=== PATIENT | male | born 1965 | race Hispanic/Latino ===

== ENCOUNTER 2017-02-21 12:59 | Emergency (ER) | payer MEDICAID, SELFPAY ==
[2017-02-21 13:10] VITALS: BP 128/66; PULSE 74; RESP 18; O2SAT 99
--- NOTE | 2017-02-21 13:31 | ED PDOC ---
HPI: General Adult Time Seen by Provider: 02/21/17 13:26 Chief Complaint (Nursing): Abnormal Skin Integrity Chief Complaint (Provider): right underarm abscess History Per: Patient History/Exam Limitations: no limitations Additional Complaint(s): 52yo male w/ HIV comes to the ED complaining of right armpit abscess. No Hx diabetes. No Hx drug use. No fever or drainage. No weakness or numbness. Patient has had this in the past and states it was resolved with clindamycin. Past Medical History Reviewed: Historical Data, Nursing Documentation, Vital Signs Vital Signs: Last Vital Signs Temp 98.9 F 02/21/17 14:04 Pulse 74 02/21/17 13:04 Resp 18 02/21/17 13:04 BP 128/66 02/21/17 13:04 Pulse Ox 99 02/21/17 13:56 - Medical History PMH: HIV Denies: Diabetes, Chronic Kidney Disease - Surgical History Surgical History: No Surg Hx - Family History Family History: States: Unknown Family Hx - Social History Current smoker - smoking cessation education provided: No Alcohol: None Drugs: Denies - Home Medications Home Medications: Ambulatory Orders Medication Instructions Recorded Acetaminophen/Codeine 1 ea PO Q6 PRN #12 tab 03/06/16 [Tylenol/Codeine 300 MG/30 MG] Azithromycin [Zithromax Z-Julian] 250 mg PO DAILY #1 packet 03/06/16 Emtricitabine/Tenofovir Diso 1 tab PO DAILY 03/06/16 [Truvada 200 MG-300 MG] Oseltamivir Phosphate [Tamiflu] 75 mg PO BID #10 capsule 03/06/16 Clindamycin [Cleocin] 300 mg PO Q8 #30 cap 02/21/17 - Allergies Allergies/Adverse Reactions: Allergies Allergy/AdvReac Type Severity Reaction Status Date / Time Penicillins Allergy RASH Verified 02/21/17 13:04 Review of Systems ROS Statement: Except As Marked, All Systems Reviewed And Found Negative Skin: Positive for: Other (abscess, arm pain) Physical Exam - Reviewed Nursing Documentation Reviewed: Yes Vital Signs Reviewed: Yes - Physical Exam Appears: Positive for: Well, Non-toxic, No Acute Distress Head Exam: Positive for: ATRAUMATIC, NORMAL INSPECTION, NORMOCEPHALIC Skin: Positive for: Warm, Dry Eye Exam: Positive for: EOMI, PERRL Cardiovascular/Chest: Positive for: Regular Rate, Rhythm Respiratory: Positive for: Normal Breath Sounds. Negative for: Respiratory Distress Pulses-Radial (L): 2+ Pulses-Radial (R): 2+ Gastrointestinal/Abdominal: Positive for: Soft. Negative for: Tenderness, Mass , Distended Extremity: Positive for: Normal ROM, Other (2cm area of fluctuant abscess to right underarm just below axilla with area of surrounding cellulitis. ) Neurologic/Psych: Positive for: Alert, Oriented (x3) - ECG O2 Sat by Pulse Oximetry: 99 (RA) Pulse Ox Interpretation: Normal Medical Decision Making Medical Decision Makin Explained that I&D is indicated today however patient refuses stating he is concerned he will pass out. I explaineed to him the use of lidocaine to minimize his discomfort and he continues to refuse. Explained I am strongly recommending I&D however patient insists he does not want I&D and wishes to be discharged with Rx clindamycin. He is aware of the risks included including worsening of symptoms or . Leaving Against Medical Advice (AMA): This patient is choosing to leave against medical advice. The EP has personally explained to the pt that choosing to do so may result in permanent bodily harm or . The EP discussed at great length that without further evaluation and monitoring there may be unforeseen circumstances and/or deterioration causing permanent bodily harm or as a result of their choice. The pt verbalized these risks back to the physician in laymans terms. The pt is alert , oriented, and shows the mental capacity to make clear decisions regarding the pts health care at this time. The pt continues to wish to leave against medical advice. In light of the pts decision to leave AMA, follow-up has been arranged and the pt is aware of the importance of following up as instructed. The pt has been advised that they should return to the ED immediately if they change their mind at any time, or if thier condition begins to change or worsen in any way. Disposition - Clinical Impression Clinical Impression: Abscess of axilla, right - Disposition Disposition: Against Medical Advice Disposition Time: 13:40 Condition: UNKNOWN Additional Instructions: You are signing out against medical advise. I recommend you get drainage of your abscess. Follow up with PMD within 2 days. Take antibiotics as prescribed. Warm compresses to abscess. Return immediately for any worsening symptoms. Return immediately if you consent to incision and drainage as recommended. Prescriptions: Clindamycin [Cleocin] 300 mg PO Q8 #30 cap Instructions: Abscess (ED) Additional Comments - Additional Comments Additional Comments: Scribe Attestation: Documented by Jese Marquis acting as a scribe for Lamar Arevalo MD. Scribkaylan Attestation: All medical record entries made by the Scribe were at my direction and personally dictated by me. I have reviewed the chart and agree that the record accurately reflects my personal performance of the history, physical exam, medical decision making, and the department course for this patient. I have also personally directed, reviewed, and agree with the discharge instructions and disposition.
[2017-02-21 14:05] VITALS: TEMP 98.9
== END 2017-02-21 14:06 | disposition left against medical advice (07) ==
LOC: H.ER 12:59
DX: L02.411 Cutaneous abscess of right axilla (principal)

== ENCOUNTER 2018-03-04 15:20 | Emergency (ER) | payer MEDICAID ==
--- NOTE | 2018-03-04 15:50 | ED PDOC ---
HPI: Influenza Time Seen by Provider: 03/04/18 15:30 Chief Complaint: Cough, Cold, Congestion Chief Complaint (Provider): Upper Respiratory Infection History Per: Patient Exam Limitations: no limitations Have you had recent travel within the past 21 days to any of: No Onset/Duration Of Symptoms: Days (2) Symptoms include: cough, nasal congestion Sick Contacts (Context): None Past Medical History Reviewed: Historical Data, Nursing Documentation, Vital Signs Vital Signs: Last Vital Signs Temp 98.0 F 03/04/18 15:23 Pulse 75 03/04/18 15:23 Resp 16 03/04/18 15:23 BP 126/63 03/04/18 15:23 Pulse Ox 100 03/04/18 15:23 - Medical History PMH: HIV Denies: Diabetes, Chronic Kidney Disease - Family History Family History: States: Unknown Family Hx - Home Medications Home Medications: Ambulatory Orders Medication Instructions Recorded Acetaminophen/Codeine 1 ea PO Q6 PRN #12 tab 03/06/16 [Tylenol/Codeine 300 MG/30 MG] Azithromycin [Zithromax Z-Julian] 250 mg PO DAILY #1 packet 03/06/16 Emtricitabine/Tenofovir Diso 1 tab PO DAILY 03/06/16 [Truvada 200 MG-300 MG] Oseltamivir Phosphate [Tamiflu] 75 mg PO BID #10 capsule 03/06/16 Clindamycin [Cleocin] 300 mg PO Q8 #30 cap 02/21/17 Promethazine/Codeine 5 ml PO QID #120 ml 03/04/18 [Phenergan/Codeine Oral Syrup] - Allergies Allergies/Adverse Reactions: Allergies Allergy/AdvReac Type Severity Reaction Status Date / Time Penicillins Allergy RASH Verified 02/21/17 13:04 Review of Systems ROS Statement: Except As Marked, All Systems Reviewed And Found Negative Respiratory: Positive for: Cough. Negative for: Shortness of Breath, SOB with Exertion, Wheezing Physical Exam - Reviewed Nursing Documentation Reviewed: Yes Vital Signs Reviewed: Yes - Physical Exam Appears: Positive for: Well, Non-toxic, No Acute Distress. Negative for: In Acute Distress Head Exam: Positive for: ATRAUMATIC, NORMAL INSPECTION, NORMOCEPHALIC Neck: Positive for: Normal, Painless ROM, Supple. Negative for: Decreased ROM Cardiovascular/Chest: Positive for: Regular Rate, Rhythm, Chest Non Tender. Negative for: Edema, Bradycardia, Tachycardia Respiratory: Positive for: Normal Breath Sounds. Negative for: Crackles, Rales , Rhonchi, Stridor, Wheezing Pulses-Carotid (L): 2+ Pulses-Carotid (R): 2+ Pulses-Radial (L): 2+ Pulses-Radial (R): 2+ Medical Decision Making Medical Decision Making: URI sx with cough tx with prometh VC and symptomatic tx - ECG O2 Sat by Pulse Oximetry: 100 Disposition - Clinical Impression Clinical Impression: Common cold, Cough, URI, acute - Patient ED Disposition Is Patient to be Admitted: No Doctor Will See Patient In The: Office Counseled Patient/Family Regarding: Diagnosis, Need For Followup, Rx Given - Disposition Referrals: [facility] [Outside] Disposition: Routine/Home Disposition Time: 15:54 Condition: GOOD Prescriptions: Promethazine/Codeine [Phenergan/Codeine Oral Syrup] 5 ml PO QID #120 ml Instructions: Cough in Adults, Viral Upper Respiratory Infection, Adult (DC) Forms: [employer] ([place]rian)
[2018-03-04 16:05] VITALS: BP 120/70; PULSE 78; RESP 20; TEMP 98; O2SAT 98
== END 2018-03-04 16:07 | disposition home or self-care (01) ==
LOC: H.ER 15:20
DX: J06.9 Acute upper respiratory infection, unspecified (principal); Z88.0 Allergy status to penicillin